=== PATIENT | male | born 1935 | race Caucasian/White ===

== ENCOUNTER 2018-03-02 15:36 | Emergency (ER) | payer MEDICARE, OTHER ==
[~2018-03-02] VITALS: Ht 180.3 cm; Wt 90.9 kg
[~2018-03-02 15:36] MED LIST: ASPIRIN LOW DOS81 M2 PO; ATIVAN1 MG PO; ATORVASTATIN CA20 MG; BAYER ASPIRIN325 M1 PO; DIVALPROEX SOD250 MG PO; DONEPEZIL10 MG PO; DOXYCYCL HYC100 MG PO; DUONEB IN; LASIX 20 MG TAB20 MG PO; LIPITOR40 M1 PO; LISINOPRIL5 MG PO; PREDNISONE10 MG PO; PROAIR HFA IN; QUETIAPINE FUMA25 MG PO; RISPERDAL1 MG PO; SERTRALINE50 MG PO; SINGULAIR 10 MG10 MG PO; TENORMIN25 MG PO; TRAZODONE50 MG PO; VENTOLIN HFA IN; ZOLPIDEM5 MG PO
[2018-03-02 16:21] LABS: HEMATOCRIT 50.4 % (39.0-50.0); HEMOGLOBIN 16.4 g/dl (14.0-18.0); IMMATURE GRANULOCYTES 0.4 % (0.0-1.0); MEAN CELL VOLUME 96.4 fL CALC (80.0-100.0); MEAN CORPUSCULAR HGB 31.4 pG CALC (26.0-32.0); MEAN CORPUSCULAR HGB CONC 32.5 g/L CALC (32.0-36.0); NEUT# 11.1 thou/uL (1.82-7.42); RED BLOOD COUNT 5.23 mill/uL (4.70-6.10); RED CELL DISTRI WIDTH 13.5 % (11.5-15.5)
[2018-03-02 16:35] LABS: ALBUMIN 4.1 g/dL (3.2-5.0); ALKALINE PHOSPHATASE 103 u/l (38-126); ANION GAP 15 (6-22 (CALC)); BILIRUBIN, TOTAL 0.5 mg/dL (0.0-1.4); BUN 25 mg/dL (8-23); BUN/CREATININE RATIO 21 (12-20 (CALC)); CARBON DIOXIDE 30 mmol/l (22-30); CHLORIDE 103 mmol/l (95-108); CREATININE 1.2 mg/dL (0.7-1.3); GFR 58 ML/MIN (>=60 (CALC)); GFR FOR AFR.AMER. > 60 ML/MIN (>=60 (CALC)); LIPASE 45 u/l (23-300); POTASSIUM 4.4 mmol/l (3.5-5.1); SGOT/AST 17 u/l (19-48); SGPT/ALT 25 u/l (11-66); SODIUM 144 mmol/l (137-146); TOTAL PROTEIN 7.9 g/dL (6.3-8.2)
[2018-03-02 16:41] LABS: PROTHROMBIN TIME 10.7 SECONDS (9.0-12.5)
[2018-03-02] MEDS ORDERED: PAXIL30 MG PO (17:12)
[2018-03-02] MEDS ORDERED: SPIRIVA HANDIHALER IN (17:14)
[2018-03-02] MEDS ORDERED: VITAMIN D350000 UNIT PO (17:16)
[2018-03-02] MEDS ORDERED: SENNOSIDES-DOCU1 TAB PO (17:17)
[2018-03-02 17:19] VITALS: BP 108/77
[2018-03-02] MEDS ORDERED: SEROQUEL25 MG PO (17:20)
== END 2018-03-02 18:00 | disposition short-term general hospital (02) ==
LOC: ED 15:36
PROVIDERS: Emergency Medicine
DX: K92.2 Gastrointestinal hemorrhage, unspecified (principal); R53.1 Weakness; K92.0 Hematemesis; I10 Essential (primary) hypertension; I48.91 Unspecified atrial fibrillation; F03.90 Unspecified dementia, unspecified severity, without behavioral disturbance, psychotic disturbance, mood disturbance, and anxiety
CPT/HCPCS: S0164

== ENCOUNTER → 2018-11-11 | Outpatient (REF) | payer MEDICARE, OTHER ==
[~2018-11-11] MED LIST changes: +PAXIL30 MG PO; +SENNOSIDES-DOCU1 TAB PO; +SEROQUEL25 MG PO; +SPIRIVA HANDIHALER IN; +VITAMIN D350000 UNIT PO
== END | disposition home or self-care (01) ==
LOC: LABSPEC 20:18
PROVIDERS: ATTEND Internal Medicine
DX: R41.0 Disorientation, unspecified (principal); R82.998 Other abnormal findings in urine

== ENCOUNTER 2019-02-05 15:30 | Emergency (ER) | payer MEDICARE, OTHER ==
[~2019-02-05] VITALS: Ht 180.3 cm; Wt 63.6 kg
[2019-02-05] MEDS ORDERED: PEPCID20 MG PO (15:46)
[2019-02-05 17:03] LABS: IMMATURE GRANULOCYTES 0.5 % (0.0-5.0); MEAN CELL VOLUME 95.1 fL CALC (80.0-100.0); MEAN CORPUSCULAR HGB 30.9 pG CALC (26.0-32.0); MEAN CORPUSCULAR HGB CONC 32.5 g/L CALC (32.0-36.0); NEUT# 5.78 thou/uL (1.82-7.42); RED BLOOD COUNT 4.08 mill/uL (4.70-6.10); RED CELL DISTRI WIDTH 13.4 % (11.5-15.5)
[2019-02-05 17:04] LABS: HEMATOCRIT 38.8 % (39.0-50.0); HEMOGLOBIN 12.6 g/dl (14.0-18.0)
[2019-02-05 17:16] LABS: ALKALINE PHOSPHATASE 75 u/l (38-126); ANION GAP 11 (6-22 (CALC)); BILIRUBIN, TOTAL 0.4 mg/dL (0.0-1.4); BUN 20 mg/dL (8-23); BUN/CREATININE RATIO 21 (12-20 (CALC)); CARBON DIOXIDE 26 mmol/l (22-30); CHLORIDE 109 mmol/l (95-108); GFR > 60 ML/MIN (>=60 (CALC)); GFR FOR AFR.AMER. > 60 ML/MIN (>=60 (CALC)); SGOT/AST 21 u/l (19-48); SODIUM 142 mmol/l (137-146)
[2019-02-05 17:17] LABS: ALBUMIN 3.2 g/dL (3.2-5.0); TOTAL PROTEIN 6.2 g/dL (6.3-8.2)
[2019-02-05] MEDS ORDERED: KEFLEX500 M1 PO (18:14)
[2019-02-05 20:22] VITALS: BP 146/78
== END 2019-02-05 20:22 ==
LOC: ED 15:30
PROVIDERS: Emergency Medicine
PROC: 0HQ1XZZ Repair Face Skin, External Approach (ICD-10-PCS; principal; 2019-02-05)
DX: S01.81XA Laceration without foreign body of other part of head, initial encounter (principal); S01.111A Laceration without foreign body of right eyelid and periocular area, initial encounter; S61.511A Laceration without foreign body of right wrist, initial encounter; S00.83XA Contusion of other part of head, initial encounter; S00.11XA Contusion of right eyelid and periocular area, initial encounter; W18.30XA Fall on same level, unspecified, initial encounter; Y93.01 Activity, walking, marching and hiking; Y92.128 Other place in nursing home as the place of occurrence of the external cause

== ENCOUNTER 2019-04-11 07:19 | Emergency (ER) | payer MEDICARE, OTHER ==
[~2019-04-11] VITALS: Ht 180.3 cm; Wt 80.0 kg
[~2019-04-11 07:19] MED LIST changes: +KEFLEX500 M1 PO; +PEPCID20 MG PO
[2019-04-11 08:06] LABS: HEMATOCRIT 35.7 % (39.0-50.0); HEMOGLOBIN 11.6 g/dl (14.0-18.0); IMMATURE GRANULOCYTES 0.3 % (0.0-5.0); MEAN CELL VOLUME 92.5 fL CALC (80.0-100.0); MEAN CORPUSCULAR HGB 30.1 pG CALC (26.0-32.0); MEAN CORPUSCULAR HGB CONC 32.5 g/L CALC (32.0-36.0); NEUT# 3.6 thou/uL (1.82-7.42); RED BLOOD COUNT 3.86 mill/uL (4.70-6.10); RED CELL DISTRI WIDTH 13.7 % (11.5-15.5)
[2019-04-11] MEDS ORDERED: DOCUSATE PO (08:14)
[2019-04-11] MEDS ORDERED: SENNA PO (08:14)
[2019-04-11] MEDS ORDERED: PAIN & FEVER325 MG PO (08:16)
[2019-04-11 08:18] LABS: URINE BILIRUBIN - DIPSTICK NEGATIVE (NEGATIVE); URINE BLOOD DIPSTICK NEGATIVE (NEGATIVE); URINE COLOR YELLOW; URINE GLUCOSE - DIPSTICK NEGATIVE (NEGATIVE); URINE KETONE NEGATIVE (NEGATIVE); URINE LEUK ESTERASE NEGATIVE (NEGATIVE); URINE NITRITE - DIPSTICK NEGATIVE (Negative); URINE PROTEIN - DIPSTICK NEGATIVE (NEG-TRACE); URINE SPECIFIC GRAVITY >=1.030; URINE UROBILINOGEN - DIPSTICK 0.2 E.U./dL (0.2)
[2019-04-11 08:26] LABS: ANION GAP 9 (6-22 (CALC)); BUN 17 mg/dL (8-23); BUN/CREATININE RATIO 18 (12-20 (CALC)); CARBON DIOXIDE 27 mmol/l (22-30); CHLORIDE 107 mmol/l (95-108); GFR > 60 ML/MIN (>=60 (CALC)); GFR FOR AFR.AMER. > 60 ML/MIN (>=60 (CALC)); POTASSIUM 3.6 mmol/l (3.5-5.1); SODIUM 138 mmol/l (137-146)
[2019-04-11 10:28] VITALS: BP 130/77
== END 2019-04-11 11:15 ==
LOC: ED 07:19
PROVIDERS: Family Medicine
DX: S70.01XA Contusion of right hip, initial encounter (principal); I11.0 Hypertensive heart disease with heart failure; I50.9 Heart failure, unspecified; F03.90 Unspecified dementia, unspecified severity, without behavioral disturbance, psychotic disturbance, mood disturbance, and anxiety; I48.91 Unspecified atrial fibrillation; W19.XXXA Unspecified fall, initial encounter; Y92.129 Unspecified place in nursing home as the place of occurrence of the external cause

== ENCOUNTER 2019-06-25 02:18 | Inpatient (IN) | payer MEDICARE, OTHER ==
[~2019-06-25] VITALS: Ht 180.3 cm; Wt 66.7 kg
[2019-06-25] VITALS (7 sets, daily range): BP systolic 81–113; BP diastolic 43–70
[~2019-06-25 02:18] MED LIST changes: +DOCUSATE PO; +PAIN & FEVER325 MG PO; +SENNA PO
--- NOTE | 2019-06-25 02:18 | NUR ---
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
--- NOTE | 2019-06-25 02:30 | NUR ---
ALERT CONFUSED M LOOSE NONPROD COUGH TACHYCARDIA.
[2019-06-25 02:55] LABS: HEMATOCRIT 35.4 % (39.0-50.0); HEMOGLOBIN 11.5 g/dl (14.0-18.0); IMMATURE GRANULOCYTES 0.3 % (0.0-5.0); MEAN CORPUSCULAR HGB 29.6 pG CALC (26.0-32.0); MEAN CORPUSCULAR HGB CONC 32.5 g/L CALC (32.0-36.0); NEUT# 14.84 thou/uL (1.82-7.42); RED BLOOD COUNT 3.89 mill/uL (4.70-6.10); RED CELL DISTRI WIDTH 14.1 % (11.5-15.5)
--- NOTE | 2019-06-25 03:02 | NUR ---
GLEASON CATH PLACED YELLOW URINE DRAINS SPEC TO LAB PT TOLERATED IT MOD WELL MEATUS IS CLEAN AND WITHOUT DEBRIS OR CONTAMINANTS ON INSPECTION
[2019-06-25 03:08] LABS: ALBUMIN 3.2 g/dL (3.2-5.0); ALKALINE PHOSPHATASE 58 u/l (38-126); BUN 33 mg/dL (8-23); BUN/CREATININE RATIO 38 (12-20 (CALC)); CARBON DIOXIDE 27 mmol/l (22-30); CHLORIDE 101 mmol/l (95-108); CREATININE 0.9 mg/dL (0.7-1.3); GFR > 60 ML/MIN (>=60 (CALC)); GFR FOR AFR.AMER. > 60 ML/MIN (>=60 (CALC)); SGOT/AST 25 u/l (19-48); SODIUM 137 mmol/l (137-146); TOTAL PROTEIN 6.6 g/dL (6.3-8.2)
[2019-06-25 03:16] LABS: ANION GAP 14 (6-22 (CALC)); BILIRUBIN, TOTAL 0.8 mg/dL (0.0-1.4); POTASSIUM 4.5 mmol/l (3.5-5.1)
[2019-06-25 03:20] LABS: MYOGLOBIN 41 ng/mL (0 - 121)
[2019-06-25 03:29] LABS: URINE BILIRUBIN - DIPSTICK NEGATIVE (NEGATIVE); URINE BLOOD DIPSTICK NEGATIVE (NEGATIVE); URINE COLOR YELLOW; URINE GLUCOSE - DIPSTICK NEGATIVE (NEGATIVE); URINE KETONE NEGATIVE (NEGATIVE); URINE LEUK ESTERASE NEGATIVE (NEGATIVE); URINE NITRITE - DIPSTICK NEGATIVE (Negative); URINE PROTEIN - DIPSTICK NEGATIVE (NEG-TRACE); URINE SPECIFIC GRAVITY 1.025; URINE UROBILINOGEN - DIPSTICK 0.2 E.U./dL (0.2)
--- NOTE | 2019-06-25 03:52 | NUR ---
IVPB FLUIDS AND MED INFUSING PT APPEARS LESS UNSETTLED VS ADM ASSESSMENT ARACELY IN IN HI HOB ELEV
--- NOTE | 2019-06-25 04:25 | NUR ---
PHONE REPORT TO NURSE FRAUSTO IN ICU
--- NOTE | 2019-06-25 04:30 | NUR ---
TO ICU VIA SREWTCHER MONITOR O2 IN STABLE CONDITION
--- NOTE | 2019-06-25 04:40 | NUR ---
PATIENT ARRIVES VIA ER STRETCHER, VANCOMYCIN INFUSING, ON NC 3L/MIN ACCOMPANIED BY ER NURSE. PATIENT AROUSES WITH PAINFUL STIMULI ONLY. HE IS NON COOPERATIVE, GARDS HIMSELF. HAS TO BE REASSURED AND ANOTHER NURSE AT BEDSIDE TO HELP WITH PLACING MONITOR ON. HE ALSO TRIES TO TAKE OFF HIS NC. PATIENT IS NONVERBAL. HAS AFOLEY AT GRAVITY, DRAINS DARK GILBERTO AND CLOUDY URINE. AFEBRILE. ST AT 116 BPM ON TELEMETRY. [facility] SITE INTACT. 147 LBS ON BEDSCALE. LAYS ON HIS R-SIDE. 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 CALL LIGHT WITHIN REACH. WILL CONTINUE TO MONITOR.
--- NOTE | 2019-06-25 05:40 | NUR ---
O2 INCREASED TO 5.5 L/MIN NC DUE TO HE MOUTH BREATHES AND SATS DROP TO 80'S.
--- NOTE | 2019-06-25 05:55 | NUR ---
RT AT BEDSIDE.
--- NOTE | 2019-06-25 06:09 | NUR ---
PATIENT PLACED ON VENTI MASK 40%.
--- NOTE | 2019-06-25 06:55 | NUR ---
RECIEVED REPORT FROM MARYANNE MARTINEZ. ASSUMED PT CARE.
--- NOTE | 2019-06-25 07:30 | NUR ---
PT NON-VERBAL, STAFF MUST ANTICIPATE NEEDS, PT REPOSITIONED FOR COMFORT, REMAINS GUARDED. ST ON TELEMETRY. RESPIRATIONS EVEN/UNLABORED,VENTI MASK @40%, SA02@95%. LS COARSE THROUGHOUT. ABDOMEN SOFT , NON- TENDER, BSX4 ACTIVE. PT PASSING GAS. 22G TO LH INFUSSING NS @125ML/HR, NO S/S OF INFILTRATION OR INFECTION NOTED AT SITE. CALL LIGHT IN REACH. WILL MONITOR CLOSELY.
--- NOTE | 2019-06-25 07:55 | NUR ---
RECIEVED REPORT FROM MARYANNE MARTINEZ. ASSUMED PT CARE.
--- NOTE | 2019-06-25 08:26 | NUR ---
RECEIVED PT FROM ICU VIA BED.
--- NOTE | 2019-06-25 09:58 | NUR ---
S: PAU BARRIOS is a 83 M who presents with pneumonia and sepsis. He has a history of hypertension, dementia, CHF, depression, and AFIb. All medications in patient's chart were reviewed. O: VS: BP: 98/53 mmHg, P: 110 beats/min, RR: 21 breaths/min, T: 96.8 F W: 66.678 kg, HT: 71 in, Scr: 0.9 mg/dL, CrCl: 53.7 ml/min A: Blood culture is pending. Stool culture is pending. P: Patient is on Zosyn 3.375 gm IV Q6H. Vancomycin ordered for pharmacy to dose. Start Vancomycin 750 mg IV Q12H. Vancomycin trough is drawn before the 4th dose on 06/26/19 at 15:30. Vancomycin goal trough is between 15-20 mcg/ml. Pharmacy will follow and or advise on antibiotics use as needed.
--- NOTE | 2019-06-25 12:30 | NUR ---
PT IS RELAXING IN BED NOT WANTING TO EAT. IV SITE IS FREE FROM REDNESS OR EDEMA. CONTNUE TO OBSERVE AND MONITOR.
--- NOTE | 2019-06-25 16:15 | NUR ---
PT IS RELAXING IN BED WITH NO DISTRESS NOTED. IV SITE IS FREE FROM REDNESS OR EDEMA.
--- NOTE | 2019-06-25 23:00 | NUR ---
ASSISTED LAB W/DRAWS, PT COMBATIVE TOWARDS DIESEL TRUCK MECHANIC, PULLING ON NEEDLE AND IV SITE. IV SITE WRAPPED W/KOBAN AND MESH COVER TO ASSIST IN PROTECTING. PT IS NOW PULLING ON HOSPITAL ID BANDS ATTEMPTING TO BREAK THEM. PT MEDICATED AT THIS TIME. NO OTHER S/O DISTRESS. BREATHING IS REGULAR, PT IS NOT ATTEMPTING TO GET OUT OF BED. NO MOANING OR GROANING, JUST FIDGETING ONCE WE LEAVE HIM ALONE. WET SOUNDING COUGH AT TIMES HEARD. LUNG SOUNDS COURSE THROUGHOUT.
--- NOTE | 2019-06-25 23:35 | NUR ---
PT CONFUSED, SITTING IN ROOM TO MONITOR AND ATTEMPT KEEPING PT CALM. HE APPEARS CALM AT THIS TIME. WE HAVE ATTEMPTED TO GET V/S, BUT PULLS AWAY AND HITS AT US WHEN ATTEMPTS ARE MAD. PHYSICIAN NOTIFIED, ORDERS RECEIVED
[2019-06-26] VITALS (22 sets, daily range): BP systolic 70–140; BP diastolic 43–91
--- NOTE | 2019-06-26 00:35 | NUR ---
PHYSICIAN NOTIFIED OF LOW BP, ORDERS RECEIVED FOR BOLUS, IF NOT RESPONSIVE TO BOLUS, TRANSFER TO ICU. HOB HAS BEEN LOWERED AND BOLUS ADMINISTERING AT THIS TIME.
--- NOTE | 2019-06-26 01:15 | NUR ---
PT TRANSFERRED TO ICU PER PHYCISIAN ORDERS. BP 78/48,HR60, R22, 02 SATS 97% ON NC02. PT APPEARS CALM AND RESTFUL, BUT DOES RESPOND TO STIMULUS. REPORT GIVEN TO ICU NURSE.
--- NOTE | 2019-06-26 01:20 | NUR ---
rec'd to icu5 per bed from [facility]. report rec'd per manuel nuñez. eyes open when spoken to but does not verbally respond. o2 cont per nc. surveillance monitor shows sr pacs hr 91. #22 lt wrist. ns infusing @ 125cchr. velasquez cath in place. urine cloudy yellow. fall & contact precautions cont.
--- NOTE | 2019-06-26 03:30 | NUR ---
pt pulling @ cath & sounds wet. o2 cont. sao2 94-97%. manager cardiac cath shows sinus rhythm pacs hr 99. dr phan on phone & was updated on pts condition. orders rec'd.
--- NOTE | 2019-06-26 04:30 | NUR ---
lab here. blood drawn.
[2019-06-26 04:48] LABS: MEAN CELL VOLUME 93.2 fL CALC (80.0-100.0); MEAN CORPUSCULAR HGB 29.2 pG CALC (26.0-32.0); MEAN CORPUSCULAR HGB CONC 31.4 g/L CALC (32.0-36.0); RED BLOOD COUNT 3.08 mill/uL (4.70-6.10); RED CELL DISTRI WIDTH 14.6 % (11.5-15.5)
[2019-06-26 04:53] LABS: HEMATOCRIT 28.7 % (39.0-50.0)
[2019-06-26 05:10] LABS: ALBUMIN 2.7 g/dL (3.2-5.0); ALKALINE PHOSPHATASE 61 u/l (38-126); BILIRUBIN, TOTAL 0.7 mg/dL (0.0-1.4); BUN 21 mg/dL (8-23); BUN/CREATININE RATIO 24 (12-20 (CALC)); CHLORIDE 113 mmol/l (95-108); CREATININE 0.9 mg/dL (0.7-1.3); GFR > 60 ML/MIN (>=60 (CALC)); GFR FOR AFR.AMER. > 60 ML/MIN (>=60 (CALC)); POTASSIUM 3.7 mmol/l (3.5-5.1); SGOT/AST 25 u/l (19-48); SODIUM 141 mmol/l (137-146); TOTAL PROTEIN 5.7 g/dL (6.3-8.2)
[2019-06-26 05:12] LABS: ANION GAP 12 (6-22 (CALC)); CARBON DIOXIDE 20 mmol/l (22-30)
--- NOTE | 2019-06-26 06:00 | NUR ---
confused & uncoop. attempting to get oob without success.
--- NOTE | 2019-06-26 06:30 | NUR ---
has not slept since transfer to this unit.
--- NOTE | 2019-06-26 06:45 | NUR ---
RECIEVED REPORT FROM KAREN QUINTANILLA. ASSUMED PT CARE.
--- NOTE | 2019-06-26 07:00 | NUR ---
pt swinging legs over side of bed, kicking at staff, unable to redirect, pt is verbally abusive. tried redirecting and repositioning for comfort. unsuccessful at this time.
--- NOTE | 2019-06-26 07:08 | NUR ---
IV PUMPS ALARMING, ATTEMPTING TO REDIRECT PT, PT CONTINUES KICKING LEGS OVER SIDE OF BED, PULLING AT GLEASON, PULLING AT SIDE RAILS. CUSSING AT STAFF, REDIRECTION UNSUCCESSFUL. WILL CONTINUE TO MONITOR.
--- NOTE | 2019-06-26 07:10 | NUR ---
NOTED PT IV LEAKING, PT CONTINUES TO PULL AT IV LINES AND GLEASON CATHTER, REDIRECTION FREQUENTLY, VERY DIFFICULT TO REDIRECT. PT CONTINUES TO LOCK HANDS WITH TOP RAIL AND SCOOT SELF DOWN, ATTEMPTING TO GET OUT OF BED. PT REPOSITIONED, IV CHECKED, FOUND DISLODGED. LEVOPHED/NS STOPPED. VSS. WILL MONITOR.
--- NOTE | 2019-06-26 07:15 | NUR ---
PT CONTINUES TO NEED IMMEDIATE SUPERVISION AND REDIRECTION, UNABLE TO START NEW IV AT THIS TIME. PT REPOSITIONED FOR SAFETY AND COMFORT. WILL MONITOR CLOSELY.
--- NOTE | 2019-06-26 07:20 | NUR ---
NOTIFIED DR. HINOJOSA TO UPDATE ON PT STATUS AND NEED FOR SITTER TO HELP IN REDIRECTION. NEW ORDERS RECIEVED.
--- NOTE | 2019-06-26 07:25 | NUR ---
STARTED PLAYING MUSIC FOR PT, WASHED FACE, PT TOLERATED WELL. NEEDS CONSTANT SUPERVISION AND REDIRECTION.
--- NOTE | 2019-06-26 07:30 | NUR ---
PT REPOSITIONED, BREAKFAST TRAY SET UP, PT FED BY STAFF. TOLERATED WELL. STARTING TO CALM DOWN. PT REDIRECTED FREQUENTLY.
--- NOTE | 2019-06-26 07:45 | NUR ---
SITTER ARRIVED AT BEDSIDE. PT REPOSITIONED FOR COMFORT, MUCH MORE CALM, STARTING TO REDIRECT. NEEDS FREQUENT REDIRECTION AND QUES. WILL MONITOR CLOSELY.
--- NOTE | 2019-06-26 08:15 | NUR ---
PT SITTING UP IN BED WITH SITTER AT BEDSIDE, FREQUENT REDIRECTION NEEDED/GIVEN TO NOT PULL AT GLEASON. PT CALMER NOW, WILL MONITOR.
--- NOTE | 2019-06-26 09:06 | NUR ---
GONZALO WHITLOCK AT BEDSIDE FOR ASSESSMENT AND TO DISCUSS PLAN OF CARE.
--- NOTE | 2019-06-26 10:33 | NUR ---
PT GIVEN COMPLETE BED BATH, GLEASON CARE, SHAVE. TOLERATED WELL. COMPLETE LINEN CHANGE. SITTER REMAINS AT BEDSIDE. WILL MONITOR.
--- NOTE | 2019-06-26 11:30 | NUR ---
NEW IV STARTED, 22G RFA. PT TOLERATED WELL. WILL MONITOR.
--- NOTE | 2019-06-26 11:40 | NUR ---
PRELIMINARY BLOOD CULTURE RESULTS CALLED TO AT 740AM NO NEW ORDERS
--- NOTE | 2019-06-26 12:00 | NUR ---
PT CONTINUES TO BE RESTLESS , SITTER REDIRECTS FREQUENTLY. PT REPOSITIONED, LUNCH TRAY SET UP. PT FED BY STAFF. TOLERATED WELL. SOFT MUSIC PLAYING OF PT LIKING. WILL MONITOR.
--- NOTE | 2019-06-26 12:30 | NUR ---
PT BECOMING INCREASINGLY AGGITATED, HARD TO REDIRECT. KICKING AND SWINGING ARMS AT STAFF. DR. HINOJOSA NOTIFIED.
--- NOTE | 2019-06-26 13:05 | NUR ---
PT MEDICATED ORDERED FOR AGGITATION, UNABLE TO REDIRECT. PT KICKING STAFF, CUSSING AT SITTER AND THIS LINE HAUL TRUCK DRIVER, SWINGING BOTH FISTS WHILE TRYING TO PERFORM CARE. DR. HINOJOSA NOTIFIED TO UPDATE ON PT STATUS AND BEHAVIOR. PT PULLING AT GLEASON CATHETER. NEW ORDERS RECIEVED.
--- NOTE | 2019-06-26 13:10 | NUR ---
PT CONTINUES WITH VERBALLY AND PHYSICALLY AGGRESIVE BEHAVIOR. KICKING BOTH LEGS AND THROWING FISTS AT STAFF WHILE TRYING TO PERFORM CARE. PT ATTEMPTING TO PINCH AND BITE. BILATERAL SOFT WRIST RESTRAINTS INITIATED PER ORDERS. SITTER REMAINS AT BEDSIDE. WILL MONITOR.
--- NOTE | 2019-06-26 14:30 | NUR ---
PT CONTINUES TO BE RESTLESS, HARD TO REDIRECT. RESTRAINTS LOOSENED FOR REPOSITIONING, THEN REAPPLIED. RADIAL PULSES +. GLEASON CATHETER REMAINS PATENT, DRAINING TO BSD, YELLOW CLOUDY URINE. SITTER AT BEDSIDE. WILL MONITOR.
--- NOTE | 2019-06-26 15:30 | NUR ---
LAB AT BEDSIDE FOR BLOOD DRAW.
--- NOTE | 2019-06-26 16:00 | NUR ---
NOTIFIED LAB FOR RESULT OF VANCO TROUGH NOT AVAILABLE AT THIS TIME. WILL MONITOR.
--- NOTE | 2019-06-26 16:28 | NUR ---
S: PAU BARRIOS is a 83 M who presents with pneumonia with sepsis and COPD exacerbation. He has a history of hypertension, dementia, CHF, depression, and AFib. All medications in patient's chart were reviewed. O: VS: BP: 129/73 mmHg, P: 108 beats/min, RR: 18 breaths/min, T: 97.3 F W: 66.678 kg, HT: 71 in, Scr: 0.9 mg/dL, CrCl: 53.7 ml/min A: Blood culture: preliminary blood culture shows gram positive cocci. P: Patient is on Zosyn 3.375 gm IV Q6H. Vancomycin ordered for pharmacy to dose. Dose is being increased. Change Vancomycin to 1250 mg IV Q12H. Vancomycin trough is drawn before the 4th dose on 06/28/19 at 03:30. Vancomycin goal trough is between 15-20 mcg/ml. Previous Vancomycin trough on 06/26/19 at 15:30: 7 mcg/ml. Pharmacy will follow and or advise on antibiotics use as needed.
--- NOTE | 2019-06-26 17:16 | NUR ---
PT REPOSITIONED FOR COMFORT, DIETARY TRAY SET UP. PT FED BY STAFF. CONTINUES WITH CURSING AT STAFF AND ATTEMPTING TO KICK LEGS AT STAFF AND OVER BED. NOT RESPONDING TO REDIRECTION. SITTER REMAINS AT BEDSIDE.
--- NOTE | 2019-06-26 17:36 | NUR ---
DIETARY AT BEDSIDE TO TAKE ORDER FOR TOMORROW. PT CONTINUES CUSSING AT STAFF. BILATERAL SOFT WRIST RESTRAINTS REMAIN INTACT. SITTER AT BEDSIDE.
--- NOTE | 2019-06-26 19:00 | NUR ---
REPORT RECEIVED FROM MARYANNE WOO. PT RESTLESS IN BED AND PULLING ON BILATERAL SOFT WRIST RESTRAINTS; CONFUSED, AGITATED, AND UNCOOPERATIVE. SITTER AT BEDSIDE. SAFETY MEASURES IN PLACE. CALL LIGHT WITHIN REACH.
--- NOTE | 2019-06-26 19:30 | NUR ---
ASSESSMENT COMPLETED EXTENSIVELY POSSIBLE; PT UNCOOPERATIVE FOR SOME; PULLING AWAY AND NOT FOLLOWING COMMANDS. PERRLA WITH GARBLED SPEECH. LUNGS HAVE EXPIRATORY WHEEZING TO ANTERIOR LEFT LOBE; UNABLE TO ASSESS BACK AT THIS TIME; RESPIRATIONS EVEN AND UNLABORED ON ROOM AIR. 16F GLEASON DRAINING CLOUDY YELLOW URINE IN ADEQUATE AMOUNTS; LEG STRAP INTACT. 3+ PEDAL EDEMA; CLARI HOSE INTACT TO BLE. IV SITE TO LFA APPEARS HEALTHY AND FLUSHES; ZOSYN NOW INFUSING WITHOUT DIFFICULTY; IV SITE TO RFA SLIGHTLY BLOODY AND FLUSHES POSITIONALLY, BUT IS PATENT AND SALINE LOCKED. BILATERAL SOFT WRIST RESTAINTS ADJUSTED AND GOOD CSM TO HANDS. PT SHOUTING AND CUSSING; OFFERED BLANKET AND WATER, PT MAKES EFFORT TO SPIT AND PULLS TIGHTLY ON RESTRAINTS GRABBING NURSES WRIST TIGHTLY. SITTER AT BEDSIDE FOR SAFETY. PT NEEDS ARE ANTICIPATED BY STAFF.
--- NOTE | 2019-06-26 22:00 | NUR ---
RT AT BEDSIDE FOR BREATHING TREATMENT; PT MORE COOPERATIVE WITH VERBAL CUES AND INSTRUCTION.
[2019-06-27] VITALS (9 sets, daily range): BP systolic 106–160; BP diastolic 65–88
--- NOTE | 2019-06-27 00:09 | NUR ---
PT RESTS QUIETLY WITH FREQUENT MOVEMENT AND PULLING ON RESTRAINTS; DURING INTERACTION HE BECOMES VERY AGITATED YELLING AND CURSING AND PULLING TIGHTER ON RESTRAINTS. DURING ASSESSMENTS PT ATTEMPTS TO KICK NURSE AND MOVE OUT OF REACH. VSS. WARM BLANKET PROVIDED.
--- NOTE | 2019-06-27 03:00 | NUR ---
PT HAS HAD NO NOTED SLEEP AND HEART RATE INCREASING INTO THE 130S AT TIMES. CONTINUOUSLY PULLING ON RESTRAINTS AND STRAINING AGAINST THE BED. ZYPREXA GIVEN AT THIS TIME AND PT REPOSITIONED. WATER OFFERED AND PT TOOK SMALL SIPS, BUT WILL DECLINE OTHER TIMES. SAFETY MEASURES IN PLACE.
--- NOTE | 2019-06-27 05:11 | NUR ---
IV SITE TO LAC INFILTRATED DURING VANCO INFUSION AND SITE D/C'D; SITE TO RFA FOUND DISLODGED R/T WRIST RESTRAINT MOVEMENT. NEW SITE STARTED TO RAC AND BLOOD DRAWN AT TIME OF IV INITIATION. VANCO NOW INFUSING INTO RAC WITHOUT DIFFICUTLY. 400ML OF DARK YELLOW CLOUDY URINE EMPTIED FROM GLEASON. PT REMAINS CONFUSED AND UNCOORPERATIVE. SITTER AT BEDSIDE.
--- NOTE | 2019-06-27 05:41 | NUR ---
RT AT BEDSIDE FOR BREATHING TREATMENT.
[2019-06-27 05:52] LABS: HEMATOCRIT 25.6 % (39.0-50.0); HEMOGLOBIN 8.2 g/dl (14.0-18.0); IMMATURE GRANULOCYTES 0.6 % (0.0-5.0); MEAN CELL VOLUME 91.4 fL CALC (80.0-100.0); MEAN CORPUSCULAR HGB 29.3 pG CALC (26.0-32.0); NEUT# 10.61 thou/uL (1.82-7.42); RED BLOOD COUNT 2.8 mill/uL (4.70-6.10); RED CELL DISTRI WIDTH 14.5 % (11.5-15.5)
[2019-06-27 05:59] LABS: BUN 18 mg/dL (8-23); BUN/CREATININE RATIO 18 (12-20 (CALC)); CHLORIDE 113 mmol/l (95-108); GFR > 60 ML/MIN (>=60 (CALC)); GFR FOR AFR.AMER. > 60 ML/MIN (>=60 (CALC)); POTASSIUM 3.1 mmol/l (3.5-5.1); SODIUM 142 mmol/l (137-146)
[2019-06-27 06:10] LABS: ANION GAP 7 (6-22 (CALC)); CARBON DIOXIDE 25 mmol/l (22-30)
--- NOTE | 2019-06-27 07:25 | NUR ---
PT YELLING OUT, CURSING AT STAFF BREAKFAST TRAY PROVIDED, STAFF ATTEMPTED TO FEED PT, PT SPITTING OUT FOOD. PT REPOSITIONED IN BED X2 ASSIST. CHECKED SKIN INTEGRITY ON WRISTS FROM RESTRAINTS, SKIN INTACT. RESTRAINTS REAPPLIED. GLEASON CATHETER DRAINING TO GRAVITY, LEG STRAP IN PLACE. LUNG SOUNDS COARSE, RN REGISTRY COUGH. PT IS VERY RESTLESS FIGHTING WITH LOADER HELPER SORTING YARD AND SITTER DURING ASSESSMENT. UNABLE TO OBTAIN TEMP. NOTED EDEMA TO R HAND. TEDS IN PLACE. PT KICKING LEGS TO SIDE OF BED, REPOSITIONED BACK TO CENTER OF BED, SOFT WRIST RESTRAINTS REMAIN IN PLACE, SITTER AT BEDSIDE, CALL LIGHT IN REACH,CONTINUE TO MONITOR.
--- NOTE | 2019-06-27 08:18 | NUR ---
PT CONTINUES TO YELL OUT, SCREAMING AT EMPTY CHAIR AT BEDSIDE,"GET IN THAT SEAT!" PT PULLING AT RESTRAINTS, SITTER AT BEDSIDE, CONTINUE TO MONITOR.
--- NOTE | 2019-06-27 09:17 | NUR ---
PT ARGUING WITH RT DURING NEB TX, CURSING AT STAFF REGARDING MASK. PT TOOK OFF MASK. NEB TX TURNED OFF. REPOSITIONED PT IN BED, SITTER AT BEDSIDE, CONTINUE TO MONITOR.
--- NOTE | 2019-06-27 11:29 | NUR ---
AT BEDSIDE TO DISCUSS POC
--- NOTE | 2019-06-27 11:40 | NUR ---
PT IN BED CONTINUED AGITATION, PER GIVE DOSE OF ZYPREXA IM NOW, ASSISSTED X2 TO GIVE, PT TOLERATED WELL. ATTEMPTED TO GIVE MEDICATIONS PO, PT SPIT OUT AND CLOSING HIS MOUTH. WILL NOTIFY MD, SOFT WRIST RESTRAINTS IN PLACE, SITTER AT BEDSIDE, CALL LIGHT IN REACH,CONTINUE TO MONITOR.
--- NOTE | 2019-06-27 13:33 | NUR ---
PT HAD A MODERATE FORMED BROWN BM, RICH PROVIDED, PT CONTINUES TO BE COMBATIVE TO STAFF, CALL LIGHT IN REACH,CONTINUE TO MONITOR.
--- NOTE | 2019-06-27 14:00 | NUR ---
MACHINE I CUTTER NOTIFIED OF PT NOT TAKING PO POTASSIUM, ORDERS CHANGED TO IV, INITIATED IV POTASSIUM, CALL LIGHT IN REACH,CONTINUE TO MONITOR.
--- NOTE | 2019-06-27 16:00 | NUR ---
PT HAD ANOTHER BM, PERICARE PROVIDED, REPOSITIONED PT IN BED, IV VANCO INITIATED. PT CURSING AT MACHINE CHOCOLATE MOLDER, NO SIGNS OF DISTRESS NOTED, RESP EVEN AND UNLABORED. CALL LIGHT IN REACH, SOFT WRISTS RESTAINTS IN PLACE, CONTINUE TO MONITOR.
--- NOTE | 2019-06-27 18:08 | NUR ---
PT RESTING IN BED, NO SIGNS OF DISTRESS NOTED, RESP EVEN AND UNLABORED. INITIATED ZOSYN, CALL LIGHT IN REACH, SOFT WRIST RESTRAINTS IN PLACE, SITTER AT BEDSIDE, CONTINUE TO MONITOR.
--- NOTE | 2019-06-27 19:00 | NUR ---
REPORT RECEIVED FROM KAREN SIMENTAL. PT RESTING IN BED SEMI FOWLERS; ALERT WITH CONFUSION. UNCOOPERATIVE AND DOES NOT ANSWER QUESTIONS READILY. RESTLESS AND CURSING; AGITATED DURING INTERACTION. RESPIRATIONS EVEN AND UNLABORED ON ROOM AIR. BILATERAL SOFT WRIST RESTRAINTS REMAIN IN PLACE; CSM GOOD TO HANDS. SITTER AT BEDSIDE. IV FLUIDS INFUSING WITHOUT DIFFICULTY; IV SITE TO RAC APPEARS HEALTHY; NO SIGNS OF INFILTRATION OR PHLETBITIS. CLARI HOSE INTACT TO BLE. VSS. SAFETY MEASURES IN PLACE. CALL LIGHT WITHIN REACH.
--- NOTE | 2019-06-27 20:59 | NUR ---
PT TOOK HS MEDICATIONS CRUSHED AND DISOLVED IN JUICE; DRANK A FULL JUICE AND AN ENSURE.
--- NOTE | 2019-06-27 23:00 | NUR ---
PT ALSEEP WITH NO SIGNS OF DISTRESS. RESPIRATIONS EVEN AND UNLBAORED ON ROOM AIR. REPOSITIONING SELF IN BED. GLEASON CATHETER DRAINING CLOUDY YELLOW URINE IN ADEQUATE AMOUNTS; 600ML EMPTIED. SAFETY MEASURES IN PLACE. CALL LIGHT WITHIN REACH.
[2019-06-28] VITALS (13 sets, daily range): BP systolic 101–132; BP diastolic 58–75
--- NOTE | 2019-06-28 02:00 | NUR ---
PT REMAINS ALSEEP WITH NO SIGNS OF DISTRESS. BILATERAL SOFT WRIST RESTRAINTS INTACT WITH GOOD CSM TO HANDS. SITTER AT BEDSIDE. IV FLUIDS CONTINUE AND IV SITE IS HEALTHY. WILL CONTINUE TO MONITOR.
--- NOTE | 2019-06-28 03:38 | NUR ---
LAB AT BEDSIDE.
[2019-06-28 03:48] LABS: HEMATOCRIT 26.7 % (39.0-50.0); HEMOGLOBIN 8.6 g/dl (14.0-18.0); IMMATURE GRANULOCYTES 0.5 % (0.0-5.0); MEAN CELL VOLUME 92.1 fL CALC (80.0-100.0); MEAN CORPUSCULAR HGB 29.7 pG CALC (26.0-32.0); MEAN CORPUSCULAR HGB CONC 32.2 g/L CALC (32.0-36.0); NEUT# 9.44 thou/uL (1.82-7.42); RED BLOOD COUNT 2.9 mill/uL (4.70-6.10); RED CELL DISTRI WIDTH 14.7 % (11.5-15.5)
[2019-06-28 04:05] LABS: ANION GAP 7 (6-22 (CALC)); BUN 16 mg/dL (8-23); BUN/CREATININE RATIO 18 (12-20 (CALC)); CARBON DIOXIDE 25 mmol/l (22-30); CHLORIDE 113 mmol/l (95-108); CREATININE 0.9 mg/dL (0.7-1.3); GFR > 60 ML/MIN (>=60 (CALC)); GFR FOR AFR.AMER. > 60 ML/MIN (>=60 (CALC)); POTASSIUM 3.2 mmol/l (3.5-5.1); SODIUM 142 mmol/l (137-146)
--- NOTE | 2019-06-28 04:28 | NUR ---
VANCO TROUGH 20. VANCO NOW INFUSING.
--- NOTE | 2019-06-28 05:50 | NUR ---
PT HAS REMAINED ASLEEP; AWAKENS TO VERBAL STIMULI. RESTRAINTS REMOVED AT THIS TIME. SITTER AT BEDSIDE.
--- NOTE | 2019-06-28 07:16 | NUR ---
PT RESTING IN BED WITH EYES CLOSED, NO SIGNS OF DISTRESS NOTED, RESP EVEN AND UNLABORED. SITTER AT BEDSIDE, CALL LIGHT IN REACH,CONTINUE TO MONITOR.
--- NOTE | 2019-06-28 08:00 | NUR ---
BREAKFAST TRAY BROUGHT TO BEDSIDE, NO SIGNS OF DISTRESS NOTED, RESP EVEN AND UNLABORED. PT RESTING, CALM AT THIS TIME. ASSESSMENT COMPLETED, GLEASON DRAINING TO GRAVITY, LEG STRAP IN PLACE, IVF INFUSING, CALL LIGHT IN REACH, SITTER AT BEDSIDE, CONTINUE TO MONITOR.
--- NOTE | 2019-06-28 11:13 | NUR ---
S: PAU BARRIOS is a 83 M who presents with PNEUMONIA/SEPSIS. He has a history of DEMENTIA/DEPRESSION. All medications in patient's chart were reviewed. O: VS: BP 105/65, P 69, RR 18,T 97 W 66kg , HT 71IN, Scr= 0.9,CrCl= 54 ml/min> A: Blood culture 08/29 SHOWS STAPH CAPITIS P: Patient is on ZOAYN 3.375 Q6H. Vancomycin ordered for pharmacy to dose. TROUGH IS 20 ON 06/28/19 Start Vancomycin 1000MG IV Q12H. Vancomycin trough is drawn before the 4th dose on 06/30/19 @0930. Vancomycin goal trough is between 15-20 mcg/ml. Pharmacy will follow and or advise on antibiotics use as needed. SHAY REILLYD
--- NOTE | 2019-06-28 13:17 | NUR ---
PT RESTING IN BED, EYES OPENED TO VERBAL STIMULI, BUT BRIEFLY, REMOVED BLANKETS TO REPOSITION PT, HE BEGAN TO PULL BLANKETS BACK TO COVER HIMSELF. REPOSITIONED PT IN BED AND COVERED WITH BLANKETS. PT CLOSED EYES, CALL LIGHT IN REACH,CONTINUE TO MONITOR.
--- NOTE | 2019-06-28 16:13 | NUR ---
PT AWAKE, PO FLUIDS AND APPLESAUCE PROVIDED PT TOLERATED WELL. MEDICATED PER MAR. NO SIGNS OF DISTRESS NOTED, RESP EVEN AND UNLABORED. SITTER AT BEDSIDE, CALL LIGHT IN REACH,CONTINUE TO MONITOR.
--- NOTE | 2019-06-28 16:59 | NUR ---
PT RESTING IN BED, NO SIGNS OF DISTRESS NOTED,RESP EVEN AND UNLABORED. CALL LIGHT IN REACH, SITTER AT BEDSIDE, CONTINUE TO MONITOR.
--- NOTE | 2019-06-28 18:00 | NUR ---
PT ATE ALL HIS DINNER, RESTING IN BED, NO SIGNS OF DISTRESS NOTED, RESP EVEN AND UNLABORED. CALL LIGHT IN REACH,CONTINUE TO MONITOR.
--- NOTE | 2019-06-28 18:58 | NUR ---
REPORT RECEIVED FROM KAREN SIMENTAL. PT ASLEEP WITH BED ALARM ON. NO SIGNS OF DISTRESS. RESPIRATIONS EVEN AND UNLABORED ON ROOM AIR.
--- NOTE | 2019-06-28 20:07 | NUR ---
ASSESSMENT COMPLETED; PT MORE COOPERATIVE AND PLEASANT. REMAINS CONFUSED WITH GARBLED SPEECH. VSS. LUNGS COURSE WITH WHEEZING ANTERIORLY. IV FLUIDS INFUSING AT KVO; IV SITE APPEARS HEALTHY TO RAC. CLARI HOSE INTACT TO BLE. BED ALARM ON FOR SAFETY. NEEDS ARE ANTICIPATED BY STAFF.
--- NOTE | 2019-06-28 21:17 | NUR ---
BED ALARM SOUNDED; PT ATTEMPTING TO GET OUT OF BED. STATES HE NEEDS TO GET UP AND PEE; REORIENTED AND EXPLAINED THAT HE HAS A GLEASON CATHETER. WARM BLANKET PROVIDED AND PT NOW RESTING AGAIN IN BED; MOVING FEET AROUND.
--- NOTE | 2019-06-28 23:04 | NUR ---
PT ASLEEP WITH NO SIGNS OF DISTRESS. VANCO INFUSING AT THIS TIME. NO FURTHER ATTEMPTS TO GET OUT OF BED.
[2019-06-29 00:20] VITALS: BP 102/64
--- NOTE | 2019-06-29 00:23 | NUR ---
ATTEMPTED TO GIVE HS MEDICATIONS AT THIS TIME R/T DAY SHIFT MEDICATIONS GIVEN PAST DUE. PT BECAME VERY AGITATED AND TRIED TO HIT NURSE; REFUSING MEDICATIONS. VSS. PT CURRENTLY NOT MAKING ATTEMPTS TO MANIPULATE WIRES OR TUBING. ZOSYN INFUSING INTO PATENT IV. CLEAR YELLOW URINE DRAINING FROM GLEASON IN ADEQUATE AMOUNTS. WILL CONTINUE TO MONITOR.
--- NOTE | 2019-06-29 00:55 | NUR ---
PT NOW RESTING QUIETLY AND REPOSITIONING HIMSELF IN BED.
[2019-06-29 01:00] VITALS: BP 98/64
--- NOTE | 2019-06-29 02:00 | NUR ---
PT ASLEEP WITH NO SIGNS OF DISTRESS. IV FLUIDS CONTINUE TO INFUSE AT KVO. SAFETY MEASURES IN PLACE. CALL LIGHT WITHIN REACH.
[2019-06-29 03:00] VITALS: BP 100/65
--- NOTE | 2019-06-29 04:18 | NUR ---
PT MOVING AROUND IN BED; BED ALARM REMAINS ON FOR SAFETY. PT UNCOOPERATIVE WHILE AWAKE AND CURSING WHEN ATTEMPTING TO OBTAIN VS.
--- NOTE | 2019-06-29 04:38 | NUR ---
PT YELLING OUT AND ATTEMTING TO GET OUT OF BED; UNABLE TO REORIENT AND PT BECOMES AGITATED AND TRIES TO STRIKE OUT. ZYPREXA IM ADMINSITERED AT THIS TIME.
[2019-06-29 05:06] LABS: HEMATOCRIT 27.6 % (39.0-50.0); HEMOGLOBIN 8.7 g/dl (14.0-18.0); IMMATURE GRANULOCYTES 0.6 % (0.0-5.0); MEAN CORPUSCULAR HGB CONC 31.5 g/L CALC (32.0-36.0); NEUT# 7.1 thou/uL (1.82-7.42); RED CELL DISTRI WIDTH 14.6 % (11.5-15.5)
[2019-06-29 05:27] LABS: BUN 19 mg/dL (8-23); BUN/CREATININE RATIO 20 (12-20 (CALC)); CARBON DIOXIDE 27 mmol/l (22-30); CHLORIDE 112 mmol/l (95-108); CREATININE 0.9 mg/dL (0.7-1.3); GFR > 60 ML/MIN (>=60 (CALC)); GFR FOR AFR.AMER. > 60 ML/MIN (>=60 (CALC)); SODIUM 143 mmol/l (137-146)
[2019-06-29 05:30] LABS: ANION GAP 8 (6-22 (CALC))
--- NOTE | 2019-06-29 05:50 | NUR ---
PT PULLING ON GLEASON CATHETER; DURING ATTEMPTS TO PREVENT PT FROM PULLING OUT GLEASON HE WAS STRIKING OUT AND KICKING; YELLING OUT AND CURSING. 2 NURSES AT BEDSIDE ATTEMPTING TO KEEP PT FROM DISTURBING TUBING. GLEASON CATHETER REMOVED AT THIS TIME.
--- NOTE | 2019-06-29 06:08 | NUR ---
BED ASSIGNMENT RECEIVED FROM TAWNYA ON [facility]. PT TO BE TRANSFERRED TO ROOM 291.
--- NOTE | 2019-06-29 06:55 | NUR ---
PT TRANSFERRED FROM ICU/PACU VIA BED AT 0655. IV SITE IS FREE FROM REDNESS OR EDEMA. BED ALARM IN PLACE
[2019-06-29 07:15] VITALS: BP 111/69
[2019-06-29 08:20] VITALS: BP 105/68
--- NOTE | 2019-06-29 08:20 | NUR ---
ASSESSMENT IS COMPLTED: PT IS AWAKE, HR IS REG,PULSES ARE STRONG X4, ABD IS SOFT WITH ACTIVE BS. BREATH SOUNDS ARE CLEAR,BILATERALLY. CONTINUE TO OSBERVE AND MONITOR. IV SITE IS FREE FROM REDNESS OR EDEMA.
--- NOTE | 2019-06-29 12:45 | NUR ---
PT IS FUSSING AT HIS . RE: HIS CANE. NO DISTRESS NOTED. IV SITE IS FREE FROM REDNESS OR EDMEA
[2019-06-29] MEDS ORDERED: AMOX/K CLAV875 M1 PO (12:48)
[2019-06-29] MEDS ORDERED: IPRATROPIU0.5 MG/3 M IN (12:48)
[2019-06-29] MEDS ORDERED: DOXYCYCL HYC100 MG PO (12:48)
[2019-06-29] MEDS ORDERED: PREDNISONE10 MG PO (12:48)
[2019-06-29 15:29] VITALS: BP 145/75
--- NOTE | 2019-06-29 18:12 | NUR ---
GAVE REPORT TO JOANNA MADDEN AT [facility]. IV SITE DISCONTINUED CATHETER INTACT. DISCHARGE PACKET GIVEN TO TRANSPORTER
== END 2019-06-29 17:55 | DRG 871 ==
LOC: ED 02:18 → ED-I 04:04 → ED 04:19 → ICU 04:20 → MS2 08:27 → ICU 06-26 03:07 → MS2 06-29 06:08
PROVIDERS: Emergency Medicine; Internal Medicine; Nurse Practitioner Family; ADMIT Internal Medicine; ATTEND Internal Medicine
PROC: 0T9B70Z Drainage of Bladder with Drainage Device, Via Natural or Artificial Opening (ICD-10-PCS; principal; 2019-06-25)
DX: A41.9 Sepsis, unspecified organism (principal); J18.9 Pneumonia, unspecified organism; F03.91 Unspecified dementia, unspecified severity, with behavioral disturbance; G93.40 Encephalopathy, unspecified; Z87.891 Personal history of nicotine dependence; Y95 Nosocomial condition; J43.9 Emphysema, unspecified; F32.9 Major depressive disorder, single episode, unspecified; D64.9 Anemia, unspecified; I11.0 Hypertensive heart disease with heart failure; I50.9 Heart failure, unspecified; Z86.73 Personal history of transient ischemic attack (TIA), and cerebral infarction without residual deficits; I95.9 Hypotension, unspecified; E87.6 Hypokalemia; Z66 Do not resuscitate
CPT/HCPCS: J0131; J3370; S0166

== ENCOUNTER 2019-07-24 01:19 | Observation (INO) | payer MEDICARE, OTHER ==
[2019-07-24] VITALS (12 sets, daily range): BP systolic 80–145; BP diastolic 46–77
[~2019-07-24] VITALS: Ht 180.3 cm; Wt 67.0 kg
[~2019-07-24 01:19] MED LIST changes: +AMOX/K CLAV875 M1 PO; -DOCUSATE PO; +IPRATROPIU0.5 MG/3 M IN; -SENNA PO; +SENNA/DSS1 TAB PO
--- NOTE | 2019-07-24 01:37 | NUR ---
BY EMS TO ROOM
[2019-07-24] MEDS ORDERED: REMERON15 MG PO (01:48)
[2019-07-24] MEDS ORDERED: POLYETHYLENE PO (01:50)
--- NOTE | 2019-07-24 02:00 | NUR ---
ARRIVED VIA DCFR FROM [facility]. PT NOT SPEAKING. LEGS CONTRACTED. DIAPER ON. PT SMELLS OF URINE BUT DIAPER IS DRY. ALERT. RESP EASY REG. BBS-DIM IN BASES. ABD SOFT/NON-TENDER. BS+.
[2019-07-24 02:21] LABS: HEMATOCRIT 28.1 % (39.0-50.0); HEMOGLOBIN 8.5 g/dl (14.0-18.0); IMMATURE GRANULOCYTES 0.2 % (0.0-5.0); MEAN CELL VOLUME 90.9 fL CALC (80.0-100.0); MEAN CORPUSCULAR HGB 27.5 pG CALC (26.0-32.0); MEAN CORPUSCULAR HGB CONC 30.2 g/L CALC (32.0-36.0); NEUT# 4.71 thou/uL (1.82-7.42); RED BLOOD COUNT 3.09 mill/uL (4.70-6.10); RED CELL DISTRI WIDTH 14.1 % (11.5-15.5)
[2019-07-24 02:28] LABS: URINE BILIRUBIN - DIPSTICK NEGATIVE (NEGATIVE); URINE BLOOD DIPSTICK TRACE-INTACT (NEGATIVE); URINE COLOR YELLOW; URINE GLUCOSE - DIPSTICK NEGATIVE (NEGATIVE); URINE KETONE NEGATIVE (NEGATIVE); URINE LEUK ESTERASE NEGATIVE (NEGATIVE); URINE NITRITE - DIPSTICK NEGATIVE (Negative); URINE PROTEIN - DIPSTICK NEGATIVE (NEG-TRACE); URINE SPECIFIC GRAVITY 1.015; URINE UROBILINOGEN - DIPSTICK 0.2 E.U./dL (0.2)
[2019-07-24 02:45] LABS: MYOGLOBIN 33 ng/mL (0 - 121)
--- NOTE | 2019-07-24 04:02 | NUR ---
PT REPOSITIONED. FLU/STREP OBTAINED. PT
--- NOTE | 2019-07-24 04:30 | NUR ---
CHRIS FROM [facility] UPDATED ON PT CONDITION
--- NOTE | 2019-07-24 04:45 | NUR ---
ALEXYO STARTED ZOSYN IS COMPLETED.
--- NOTE | 2019-07-24 05:18 | NUR ---
DR NOTIFIED THAT PT IS HAVING TROUBLE BREATHING. SAT DECREASING/HR INCREASING AND LUNGS WITH RALES/RHONCHI/FREQ THROAT CLEARING. ADVISED THAT STILL HAVE MORE FLUID TO GO WITH VANCO STILL INFUSING. DR MORELOS ASKED THAT WE STOP VANCO AND MONITOR PT. ADVISED THAT PT IS FLU +. WILL ORDER TAMIFLU.
--- NOTE | 2019-07-24 06:00 | NUR ---
IN TO [facility]AMESON.
--- NOTE | 2019-07-24 06:55 | NUR ---
REPORT TO PRICILLA/CARMEN.
--- NOTE | 2019-07-24 07:05 | NUR ---
PT TAKEN TO ICU PER STRETCHER AND CARDIAC MONITER. TRANSFERRED TO ICU BED
--- NOTE | 2019-07-24 07:20 | NUR ---
PT ARRIVED TO ICU 8 BY STRETCHER WITH TELE & O2. PT CONTRACTED x4. MOVED TO NEW BED BY STAFF x3. ON MONITORS. ESBL SWAB COLLECTED. PT NONVERBAL BUT REACTIVE
--- NOTE | 2019-07-24 09:04 | NUR ---
PT MOVING ALL OVER BED, ROLLING, & TWISTING & TURNING. BED ALARM SET. RAILS UP. DOOR SHUT D/T DROP PRECAUTIONS R/T +FLU A BUT CURTAINS REMAIN OPEN FOR BETTER OBSERVATION.
[2019-07-24] MEDS ORDERED: MILK OF MAG2 PO (09:50)
--- NOTE | 2019-07-24 09:54 | NUR ---
ADELAIDE RUBI @BEDSIDE WITH PT. PT INSISTING SHE IS AT A SCHOOL AND NOT THE HOSPITAL. PT BECAME VERY ANGRY THAT DIRECTOR BUSINESS MANAGEMENT STATES SHE IS IN HOSPITAL. NC REDJUSTED- PT PUT IT HOW SHE LIKES IT (NOT IN HER NOSTRILS). TELE REPLACED- PT TORE THEM OFF BC "SHE'S NOT IN THE HOSPITAL".
[2019-07-24] MEDS ORDERED: IPRATROPIU0.5 MG/3 M IN (09:56)
--- NOTE | 2019-07-24 11:33 | NUR ---
& HER VAT PACKER @BEDSIDE WITH PT. PT SLEEPING IN BED, BLANKET PLACED BETWEEN PTS HEAD & SIDE OF BED. /VAT PACKER UPDATED ON PTS STATUS. BOTH EDUCATED ON PROPER PPE.
--- NOTE | 2019-07-24 12:53 | NUR ---
WIFES TOP DISTRIBUTION EXECUTIVE ASKED FOR STAFF TO CALL PTS GRANDDAUGHTER, CHRISTOPHER HU, WHO IS IN THE MEDICAL FIELD TO UPDATE HER ON PTS STATUS. PT CALLED, UNANSWERED. RETURNED CALL, CALLD DROPPED. SHE CALLED BACK, UPDATED, GIVEN CODE.
--- NOTE | 2019-07-24 13:28 | NUR ---
BACK AT ROOM, STATES PT IS COLD, NEEDS MORE BLANKETS. TEMP 97.0, GIVEN ANOTHER BLANKET.
--- NOTE | 2019-07-24 14:27 | NUR ---
RT CALLED FOR O2 OF 77% ON 3L NC. [id number]
--- NOTE | 2019-07-24 14:46 | NUR ---
2 OTHER VISITORS @BEDSIDE. VISITORS EDUCATED ON PPE. PT SLEEPING ON SIDE IN BED. BREATHING EVEN/UNLABORED. NO S/S OF DISTRESS AT THIS TIME.
--- NOTE | 2019-07-24 15:30 | NUR ---
02 TITRATED TO 2L NC
--- NOTE | 2019-07-24 17:27 | NUR ---
RT @BEDSIDE FOR BREATHING TREATMENT.
--- NOTE | 2019-07-24 18:30 | NUR ---
PT ABLE TO DRINK ENSURE IF DROPPED INTO MOUTH, SUCTION NOT STRONG ENOUGH TO SIP THROUGH STRAW. PT ATE 2 BITES OF JELLO.
--- NOTE | 2019-07-24 19:30 | NUR ---
eyes closed. no resp diff. o2 cont per nc. registered nurse cardiac telemetry shows sinus rhythm pvcs hr 89. #20 rt hand. ns infusing @ 100cchr. velasquez cath in place. urine clear yellow. turned & repositioned x2 assists. requires total care for all needs. fall, droplet & contact precautions cont.
[2019-07-25] VITALS (16 sets, daily range): BP systolic 84–120; BP diastolic 45–74
--- NOTE | 2019-07-25 00:01 | NUR ---
property assessment monitor shows sinus rhythm pvcs hr 90
--- NOTE | 2019-07-25 04:00 | NUR ---
smoke chaser shows sinus rhythm hr 84.
--- NOTE | 2019-07-25 05:30 | NUR ---
lab here. blood drawn.
[2019-07-25 06:10] LABS: ALBUMIN 2.6 g/dL (3.2-5.0); ALKALINE PHOSPHATASE 58 u/l (38-126); ANION GAP 10 (6-22 (CALC)); BUN 20 mg/dL (8-23); BUN/CREATININE RATIO 25 (12-20 (CALC)); CARBON DIOXIDE 24 mmol/l (22-30); CHLORIDE 109 mmol/l (95-108); CREATININE 0.8 mg/dL (0.7-1.3); GFR > 60 ML/MIN (>=60 (CALC)); GFR FOR AFR.AMER. > 60 ML/MIN (>=60 (CALC)); POTASSIUM 3.6 mmol/l (3.5-5.1); SGOT/AST 22 u/l (19-48); SODIUM 140 mmol/l (137-146); TOTAL PROTEIN 5.4 g/dL (6.3-8.2)
[2019-07-25 06:21] LABS: BILIRUBIN, TOTAL 0.3 mg/dL (0.0-1.4)
--- NOTE | 2019-07-25 06:55 | NUR ---
REPORT RECVD FROM KAREN QUINTANILLA AT START OF SHIFT
--- NOTE | 2019-07-25 09:35 | NUR ---
PT REFUSING TO OPEN TO EAT. MEDICATIONS MIXED WITH APPLE JUICE WHICH PT DRANK 120oz OF.
--- NOTE | 2019-07-25 12:30 | NUR ---
HEAD PORTER @BEDSIDE TO FEED PT LUNCH. PT REFUSED.
--- NOTE | 2019-07-25 15:14 | NUR ---
COMPLETE BED BATH & LINEN CHANGE COMPLETED WITH RICH. PT RICKYDS HIS PRIVACY. ATE 1 YELLOW JELLO. ORAL CARE COMPLETED.
--- NOTE | 2019-07-25 18:10 | NUR ---
PT FEED DINNER, DRANK 1/2 OF BEEF BROTH, DRANK 3/4 OF APPLE CLEAR ENSURE, ATE 1/3 OF MASHED POTATOES, & 1/3 OF ORANGE JELLO. O2 CHANGED TO HUMIDIFIED O2.
--- NOTE | 2019-07-25 19:15 | NUR ---
REPORT RECEIVED FROM MARYANNE PLEITEZ. PT RESTING ON LEFT SIDE WITH HOB SLIGHTLY ELEVATED; EYES OPEN SPONTANEOUSLY, BUT PT IS NONVERBAL; UNABLE TO DETERMINE ORIENTATION. PT CLOSED HIS EYES AND WHEN ASKED TO OPEN THEM HE DID NOT; BUT DID FOLLOW COMMAND TO OPEN MOUTH. NO SIGNS OF DISTRESS NOTED. RESPIRATIONS EVEN AND UNLABORED ON HUMIDIFIED OXYGEN 2L VIA NC. 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 REPOSITIONED ONTO BACK WITH PILLOWS. SAFETY MEASURES IN PLACE; NEEDS ARE ANTICIPATED BY STAFF.
--- NOTE | 2019-07-25 21:24 | NUR ---
PT VERBAL WHEN GIVEN HS MEDICATIONS STATING, "NO, GET AWAY." HE DID TAKE MEDICATION WITH SOME ENCOURAGEMENT; PILLS GIVEN CRUSHED IN JUICE; HE DRANK 120ML OF APPLE JUICE. REPOSITIONED WITH PILLOWS. NSR ON TELEMETRY WITH HEART RATE IN THE 80S-90S; BLOOD PRESSURE UP TO 100/59; HYPOTENSIVE AT START OF SHIFT. WILL CONTINUE TO MONITOR.
--- NOTE | 2019-07-25 22:23 | NUR ---
IV SITE FOUND DISLODGED; NEW SITE STARTED TO LAC; IV FLUIDS NOW INFUSING WITHOUT DIFFICULTY. PT TOLERATED WELL.
[2019-07-26] VITALS (23 sets, daily range): BP systolic 98–140; BP diastolic 53–90
--- NOTE | 2019-07-26 00:14 | NUR ---
TEMP IS 95.8; BARE BEBAGGER APPLIED. PT IS MORE VERBAL WHEN WARM BLANKET OFFERED PT STATES, "THAT WILL DO." PT REMOVED OXYGEN; WHEN ATTEMPTING TO PUT IT BACK ON PT AGRESSIVE AND TOOK IT OFF AGAIN STATING, "NO! TAKE THAT OUT OF MY NOSE!" EXPLAINED USE OF OXYGEN AND DECREASE IN OXYGEN SATURATION AND PT ALLOWED ME TO REAPPLY. CURRENTLY 100% SPO2 WITH NC IN PLACE. REPOSITIONED WITH PILLOWS. WILL CONTINUE TO MONITOR TEMP.
--- NOTE | 2019-07-26 00:57 | NUR ---
PT REFUSING FOR HIS TEMPERATURE TO BE RECHECKED; HOLDING HIS HANDS OVER HIS EARS. HE ALSO REMOVED HIS OXYGEN TUBING AND REFUSING TO PUT IT BACK ON; CURRENTLY ON ROOM AIR WITH SPO2 71%. WILL ATTEMPT AGAIN WHEN PT IS LESS AGITATED.
--- NOTE | 2019-07-26 01:59 | NUR ---
ATTEMPTED AGAIN TO REPLACE OXYGEN; PT STATES, "YOU BETTER THAT GET THAT OUT OF MY FACE BEFORE I KNOCK THE SHIT OUT OF YA." RT ALSO ATTEMPTED WITHOUT SUCCESS. RESPIRATIONS REMAIN EVEN AND UNLABORED ON ROOM AIR WITH SPO2 OF 80%.
--- NOTE | 2019-07-26 03:54 | NUR ---
PT HAD REMOVED BARE HUGGER; HE DID ALLOW A TEMPERATURE CHECK; 95.8. BARE HUGGER REPLACED. ATTEMPTED TO REAPPLY OXYGEN, BUT PT CONTINUES TO DECLINE AND BECOME AGRESSIVE. WILL CONTINUE TO MONITOR.
--- NOTE | 2019-07-26 05:41 | NUR ---
PT MORE COOPERATIVE; AGREED TO HAVE AM CARE COMPLETED AND OXYGEN REAPPLIED. RT AT BEDSIDE FOR BREATHING TREATMENT. GLEASON CARE COMPLETED AND LINENES CHANGED. PT 100% NOW ON 2L OF 2 VIA NC. NEEDS ANTICIPATED BY STAFF.
--- NOTE | 2019-07-26 06:55 | NUR ---
REPORT RECVD FROM MARYANNE STYLES AT START OF SHIFT.
--- NOTE | 2019-07-26 08:09 | NUR ---
PT AWAKE/ALERT, EYES OPEN. NONVERBAL. FOLLOWING THIS RN AROUND THE ROOM.
--- NOTE | 2019-07-26 09:20 | NUR ---
SITTING BEDSIDE WITH PT TO GIVE AM MEDS & FEED HIM BREAKFAST. PT TOOK PO MEDS CRUSHED & MIXED IN APPLE JUICE. ATE ALL OATMEAL, SOME APPLESAUCE. PT TRYING TO CRAWL OUT OF BED, MOVING AROUND BED, UNHOOKING HIMSELF FROM MONITORING EQUIPMENT & PULLING ON CATH GLEASON. PT ALSO REMOVED HIS CLARI HOSE, SOCKS, & HEEL PROTECTORS. PT REDIRECTED BACK TO BED.
--- NOTE | 2019-07-26 10:50 | NUR ---
BED ALARMED, ENTERED ROOM TO FIND PT TRYING TO CRAWL OUT OF BED, UNHOOKING HIMSELF FROM MONITORING EQUIPMENT & PULLING ON CATH GLEASON. PT ALSO REMOVED HIS CLARI HOSE, SOCKS, & HEEL PROTECTORS. PT REDIRECTED BACK TO BED.
[2019-07-26] MEDS ORDERED: TAM75CAP PO (12:25)
[2019-07-26] MEDS ORDERED: LEVAQUIN750 MG PO (12:25)
--- NOTE | 2019-07-26 12:29 | NUR ---
CONTACTED SHIRLEY RE: DC PT BACK TO R.
--- NOTE | 2019-07-26 13:41 | NUR ---
PER SHIRLEY DAVE, PT WILL NOT BE ALLOWED TO RETURN TO [facility] UNTIL SATURDAY MORNING WHEN THEY HAVE ENOUGH STAFF TO DO A DRASTIC MOVE OF OTHER PTS SO PT CAN HAVE AN ISOLATION ROOM; THEY ARE SHORT STAFFED TODAY.
--- NOTE | 2019-07-26 16:39 | NUR ---
PT CONTINUE TO REMOVE MEDICAL EQUIPMENT FROM SELF, INCLUDING BREAKING CATH GLEASON STICKER. #20 LAC & CATH GLEASON REINFORCED BY JAME. PT FEED STRAWBERRY ICE CREAM & DRANK 1/2 AN APPLE JUICE. PT ANSWERS SIMPLE QUESTIONS SPORATICALLY.
--- NOTE | 2019-07-26 17:30 | NUR ---
PT FEED DINNER. ATE 25% OF DINNER. PT PREFERS APPLE OVER HOFFMAN DRINKS. PT CONSTANTLY REDIRECTED FROM REMOVING MONITORING EQUIPMENT & CATH GLEASON/IV. VSS. WILL CONTINUE TO MONITOR.
--- NOTE | 2019-07-26 19:00 | NUR ---
REPORT RECEIVED FROM MARYANNE PLEITEZ. PT RESLESS IN BED PULLING AT ATTACHMENTS AND PUTTING LEGS OVER THE BED; PT HAD LARGE BOWEL MOVEMENT WITH FEET INVOLVED AND HOLDING STOOL IN HIS HANDS. ALERT WITH CONFUSION AND CURRENTLY NONVERBAL AND UNCOOPERATIVE. FULL BED BATH GIVEN WITH LINEN CHANGED. PT CURRENTLY REFUSING TO LEAVE ATTACHMENTS IN PLACE; TELEMETRY, OXYGEN, PULSE OX READER, AND IV TUBING ARE NOT ON PT AT THIS TIME; HE BECOMES AGRESSIVE AND PULLS THEM OFF WHEN ATTEMPTING TO REPLACE. GLEASON CATHETER SECURED TO RIGHT THIGH. IV SITE APPEARS HEALTHY TO LAC. SAFETY MEASURES IN PLACE INCLUDING BED ALARM. NEEDS ANTICIPATED BY STAFF.
--- NOTE | 2019-07-26 22:00 | NUR ---
PT MORE COOPERATIVE; TOOK MEDICATIONS WITHOUT DIFFICULTY CRUSHED AND DISOLVED IN JUICE. DRANK AND ENTIRE ENSURE.
--- NOTE | 2019-07-26 23:35 | NUR ---
PT ALLOWED NURSE TO APPLY TELEMETRY, OXYGEN, AND PULSE OX. SPO2 96% ON 2L VIA NC. ASSISTED WITH REPOSITIONING. NSR WITH IVCD HEART RATE 100.
[2019-07-27] VITALS (7 sets, daily range): BP systolic 107–134; BP diastolic 56–82
--- NOTE | 2019-07-27 00:46 | NUR ---
INCONTINENT OF ANTOHER BOWEL MOVEMENT. HYGEINE PROVIDED AND REPOSITIONED. PT REMOVED OXYGEN, BUT ALLOWED NURSE TO REAPPLY WITH ENCOURAGEMENT.
--- NOTE | 2019-07-27 03:00 | NUR ---
PT REPOSITIONING SELF IN BED; AWAKE AND VERBAL AT TIMES. VSS. IV SITE APPEARS HEALTHY AND FLUSHES; SALINE LOCKED AT THIS TIME. WILL CONTINUE TO MONITOR.
--- NOTE | 2019-07-27 04:12 | NUR ---
PT ALLOWED IV FLUIDS TO BE RESTARTED; IT SITE APPEARS HEALTHY AND FLUSHES WELL. LEVQUIN INFUSING AT THIS TIME. VSS. AFEBRILE.
--- NOTE | 2019-07-27 06:04 | NUR ---
IV SITE TO LAC INFILTRATED; NEW SITE PLACED TO RFA; PT TOLERATED WELL.
--- NOTE | 2019-07-27 06:10 | NUR ---
BED ALARM SOUNDED; PT HAS LEGS OUT OF BED BED; REPOSITINED SEMI FOWLERS. PT REMAINS CONFUSED AND EASILY AGITATED.
--- NOTE | 2019-07-27 07:30 | NUR ---
PT SET UP FOR AM MEAL. PUSH CONNECTOR ASSEMBLER AT BEDSIDE TO FEED.
--- NOTE | 2019-07-27 07:45 | NUR ---
PT RESTING IN BED AWAKE. SPEECH IS GARBLED. PT IS ALERT HOWEVER NOT ORIENTED. REORIENTATION UNSUCCESSFUL. SHIFT ASSESSMENT COMPLETED AT THIS TIME. CALL LIGHT IN REACH. WILL CONTINUE TO MONITOR.
--- NOTE | 2019-07-27 08:10 | NUR ---
DR HINOJOSA AT BEDSIDE AT THIS TIME
--- NOTE | 2019-07-27 08:20 | NUR ---
GLEASON REMOVED AT THIS TIME. PT TOLERATED WELL.
[2019-07-27] MEDS ORDERED: MEDDOSEPAK PO (08:35)
--- NOTE | 2019-07-27 08:58 | NUR ---
GRANDDAUGHTER CALLED FOR UPDATE AT THIS TIME
--- NOTE | 2019-07-27 10:00 | NUR ---
PT RESTING IN BED AT THIS TIME. RESP ARE EVEN AND UNLABORED. NO DISTRESS NTOED. CALL LIGHT IN REACH. WILL CONTINUE TO MONIOTR.
--- NOTE | 2019-07-27 11:30 | NUR ---
PT SET UP FOR NOON MEAL. AT BEDSIDE FEEDING PATINET.
--- NOTE | 2019-07-27 12:03 | NUR ---
PT SITTING UP IN BEAD AWKAE. AT BEDSIDE. RESP ARE EVEN AND UNLABORED. NO DISTRESS NOTED. CALL LIGHT IN REACH. WILL CONTINUE TO MONITOR.
--- NOTE | 2019-07-27 12:41 | NUR ---
SMALL AMOUNT OF INCONTINENCE NOTED. PT CLEANSED
--- NOTE | 2019-07-27 13:58 | NUR ---
DISCHARGE PACKET GIVEN TO R TRANSPORT STAFF.
--- NOTE | 2019-07-27 13:59 | NUR ---
REPORT CALLED TO HEATHER AT [facility]
--- NOTE | 2019-07-27 14:00 | NUR ---
Discharge instructions given. Discharged in stable condition via Wheelchair to with [facility]. All belongings sent with pt.
== END 2019-07-27 14:00 ==
LOC: ED 01:19 → ED-I 01:36 → ED 06:27 → ICU 06:28
PROVIDERS: Emergency Medicine; ADMIT Internal Medicine; ATTEND Internal Medicine
PROC: 0T9B70Z Drainage of Bladder with Drainage Device, Via Natural or Artificial Opening (ICD-10-PCS; principal; 2019-07-24)
DX: J10.00 Influenza due to other identified influenza virus with unspecified type of pneumonia (principal); J43.9 Emphysema, unspecified; F03.91 Unspecified dementia, unspecified severity, with behavioral disturbance; I11.0 Hypertensive heart disease with heart failure; I50.9 Heart failure, unspecified; I48.91 Unspecified atrial fibrillation; F32.9 Major depressive disorder, single episode, unspecified; D64.9 Anemia, unspecified; E78.5 Hyperlipidemia, unspecified; Z86.73 Personal history of transient ischemic attack (TIA), and cerebral infarction without residual deficits; Z87.01 Personal history of pneumonia (recurrent); Z87.891 Personal history of nicotine dependence; Z66 Do not resuscitate; A04.4 Other intestinal Escherichia coli infections; Z16.12 Extended spectrum beta lactamase (ESBL) resistance